=== PATIENT | male | born 1955 | race Caucasian/White ===

== ENCOUNTER → 2016-11-01 | Outpatient (CLI) | payer BC ==
[~2016-11-01] VITALS: Ht 188 cm; Wt 92.1 kg
[~2016-11-01] MED LIST: ASPIRIN81 M2 PO; NASACORT10.8 ML BOTH NARES; VITAMIN D2000 UNI1 PO; ZYRTEC10 M2 PO
== END | disposition home or self-care (01) ==
LOC: AMB 12:46
DX: Z12.11 Encounter for screening for malignant neoplasm of colon (principal); D12.2 Benign neoplasm of ascending colon; D12.0 Benign neoplasm of cecum; E78.9 Disorder of lipoprotein metabolism, unspecified; K57.30 Diverticulosis of large intestine without perforation or abscess without bleeding; Z83.3 Family history of diabetes mellitus; Z82.49 Family history of ischemic heart disease and other diseases of the circulatory system; Z80.51 Family history of malignant neoplasm of kidney; Z79.82 Long term (current) use of aspirin
CPT/HCPCS: 88305